=== PATIENT | female | born 1970 | race Caucasian/White ===

== ENCOUNTER 2016-07-25 07:51 | Day surgery (SDC) | payer MEDICAID ==
[2016-07-25] MEDS ORDERED: Sodium Chloride 0.9% 10 ML ONE (08:41)
[2016-07-25] MEDS ORDERED: Sodium Tetradecyl Sulfate 1% 20 MG/2 ML SDV ONE (08:41)
[2016-07-25] MEDS ORDERED: Lidocaine 1% with EPINEPHrine 1:100,000 50 ML MDV ONE (08:41)
[2016-07-25] MEDS ORDERED: Sodium Chloride 0.9% 1,000 ML IV SCH (09:00)
[2016-07-25] MEDS ORDERED: Propofol 200 MG/20 ML SDV ONE ×2 (09:12→09:37)
[2016-07-25] MEDS ORDERED: Midazolam 1 MG/ML 2 ML SDV ONE (09:12)
[2016-07-25] MEDS ORDERED: Ondansetron 4 MG/2 ML SDV ONE (09:12)
[2016-07-25] MEDS ORDERED: fentaNYL 100 MCG/2 ML SDV ONE ×2 (09:12→09:34)
[2016-07-25] MEDS ORDERED: Lidocaine 1% w/EPINEPHrine 50 ML, Sodium Bicarbonate 5 MEQ in Sodium Chloride 0.9% 950 ML INJECT ONE (09:45)
[2016-07-25 11:20] VITALS: BP 119/75
--- NOTE | 2016-07-26 10:56 | OR ---
DATE OF PROCEDURE: 07/25/2016 PROCEDURE: 1. Radiofrequency ablation of right greater saphenous vein. 2. Sclerotherapy right leg, multiple. COMPLICATIONS: None. [employer] INSTRUCTOR: None. ANESTHETIC: MAC/Local. PREOPERATIVE DIAGNOSIS: Venous/varicose vein insufficiency with inflammation and pain. POSTOPERATIVE DIAGNOSIS: Venous/varicose vein insufficiency with inflammation and pain. PROCEDURE IN DETAIL: The patient was placed in supine position. The right GSV was accessed at the level of the ankle and was introduced using a 21-gauge needle exchanged for a 35,000 wire. This was then exchanged for a 37-Turkmen sheath. After the skin was anesthetized with lidocaine, a small matthew was created. The RFA probe was advanced to greater than 3 cm from the deep junction. Tumescent fluid was injected in 1 cm jacket around this. This to be verified a second and third time. Direct even pressure was held as the probe was deployed proximally and distally, and again the saline injection was verified prior to this. Sheath and devices were removed. Direct pressure was held for 10 minutes. Dermabond was applied. The sclerotherapy was then performed in the right leg. There was 5 on the right. This was performed using 0.33% sodium tetradecyl, no more than 2 mL injected in one location. It is always drawn back to ensure intravascular injection. CoFlex wrappings were applied. The patient tolerated the procedure well. Marcel Galaviz MD /[id number]
== END 2016-07-25 11:27 | disposition home or self-care (01) ==
LOC: JP.SDS 07:51
PROVIDERS: ATTEND Surgery
DX: I87.2 Venous insufficiency (chronic) (peripheral) (principal); I83.811 Varicose veins of right lower extremity with pain; I83.11 Varicose veins of right lower extremity with inflammation; I10 Essential (primary) hypertension; K21.9 Gastro-esophageal reflux disease without esophagitis; E66.9 Obesity, unspecified
CPT/HCPCS: 36471; 36475; J1642; J2250; J2405; J2704; J3010; J7040; J7050; J3490